=== PATIENT | female | born 2000 | race African-American/Black ===

== ENCOUNTER 2022-12-21 09:42 | Emergency (ER) | payer MEDICAID ==
[~2022-12-21] VITALS: Ht 154.9 cm; Wt 52.0 kg
[2022-12-21 12:51] LABS: BASOPHILS % 0.3 % (0.0-2.0); EOSINOPHILS % 0.1 % (0.0-5.0); HEMOGLOBIN. 14.2 g/dL (12.0-16.0); LYMPHOCYTES % 17.5 % (20.0-50.0); MEAN CORPUSCULAR HEMOGLOBIN 30.7 pg (28.0-32.0); MEAN CORPUSCULAR VOLUME 90.7 fL (81.0-99.0); MEAN PLATELET VOLUME 8.3 fl (7.4-10.4); MONOCYTES % 7.7 % (2.0-8.0); NEUTROPHILS % 74.4 % (40.0-76.0); PLATELET 310 x1000/uL (130-400); RED BLOOD CELL COUNT 4.62 mill/uL (4.2-5.4); RED CELL DISTRIBUTION WIDTH 14.3 % (11.6-14.6)
[2022-12-21 13:00] LABS: CHLORIDE 107 mEq/L (98-107)
[2022-12-21 13:31] LABS: HCG SCREEN NEGATIVE
[2022-12-21 14:07] VITALS: BP 137/77
[2022-12-21] MEDS ORDERED: KETOROLAC 30MG/ML VIAL IM NR (14:15)
[2022-12-21 14:17] LABS: CLARITY URINE CLEAR (CLEAR); COLOR URINE DARK YELLOW (YELLOW); KETONES URINE 4+ (NEGATIVE); LEUKOCYTE ESTERASE URINE NEGATIVE (NEGATIVE); NITRITE URINE NEGATIVE (NEGATIVE); OCCULT BLOOD URINE 3+ (NEGATIVE); PROTEIN URINE 1+ (NEGATIVE); SPECIFIC GRAVITY URINE 1.039 (1.005-1.030)
== END 2022-12-21 14:16 | disposition left against medical advice (07) ==
LOC: ER 10:28
DX: R10.9 Unspecified abdominal pain (principal); Z53.21 Procedure and treatment not carried out due to patient leaving prior to being seen by health care provider
CPT/HCPCS: 36415; 80053; 81003; 81025; 84703; 85025; 99283

== ENCOUNTER 2024-05-29 09:33 | Emergency (ER) | payer MEDICAID ==
[~2024-05-29] VITALS: Ht 157.5 cm; Wt 55.0 kg
[2024-05-29 09:42] VITALS: BP 117/82; PULSE 72; RESP 16; TEMP 98.6; O2SAT 100
[2024-05-29] MEDS ORDERED: CEPH500C2 MT (10:44)
[2024-05-29] MEDS ORDERED: TETANUS, DIPHTHERIA, PERTUSSIS VAC/PF 0.5ML (>10YR OLD) IM ONE (10:45)
== END 2024-05-29 11:34 | disposition home or self-care (01) ==
LOC: ER 09:33
DX: S50.312A Abrasion of left elbow, initial encounter (principal); Y04.0XXA Assault by unarmed brawl or fight, initial encounter; Y93.89 Activity, other specified; Y92.89 Other specified places as the place of occurrence of the external cause; Y99.8 Other external cause status
CPT/HCPCS: 90471; 90715; 99283